=== PATIENT | female | born 1950 | race Caucasian/White ===

== ENCOUNTER → 2018-01-10 10:07 | Outpatient (CLI) | payer MEDICARE, SELFPAY ==
--- NOTE | 2018-01-10 10:11 | BI_ITS ---
MAMMOGRAPHY - BILATERAL SCREENING REASON FOR EXAM: Female, 67 years old. Routine annual screening examination. PERTINENT HISTORY: Sister with breast cancer. TECHNIQUE: Digital bilateral breast cristobal (3D mammographic acquisition) in the CC and MLO projections. 2-D mediolateral oblique (MLO) and craniocaudad (CC) views of both breasts were obtained. CAD: Full Field Digital Mammography with Computer Added Detection was performed. COMPARISON: Comparison is made with prior study June 25, 2016 and May 21, 2015. FINDINGS: Breast Composition: The breasts are heterogeneously dense, which may obscure small masses. There are no dominant masses or suspicious calcifications. No other significant abnormalities are identified. There has been no significant change since the prior study. BI/SCREENING MAMM (CAD), BILAT IMPRESSION: Stable bilateral screening mammogram. Yearly follow-up mammogram recommended. (A) ASSESSMENT CATEGORY: BIRADS Category 1: Negative. A letter regarding these results will be sent to the patient by the facility within 30 days. Approximately 10% of breast cancers are not detected by mammography. A normal mammogram should not delay biopsy of a clinically suspicious abnormality. [id number] Electronically Signed: Feliz Rangel MD at 12:44 EDT Tel [phone], Service support ,
== END ==
PROVIDERS: Family Provider Family Medicine; PCP Family Medicine; Visit Provider Obstetrics & Gynecology
DX: Z12.31 Encounter for screening mammogram for malignant neoplasm of breast (principal)
CPT/HCPCS: 77063; 77067

== ENCOUNTER → 2018-05-27 11:13 | Outpatient (CLI) | payer MEDICARE, SELFPAY ==
--- NOTE | 2018-05-27 | EMB_PTH ---
PATIENT: FLO RETANA LOC: [facility] U#:[id number] AGE/SX: 75/F ROOM: RE05/27/[address]: Dr. Porsche Carter MD : 1950 BED: DIS: SPEC #: [id number] RECD: 05/27/18 11:33 STATUS: FLAKITO IGNACIO #: [id number] ABAD: 05/27/18 00:[address]: Porsche Carter DEPT: SURGICAL PATHOLOGY RECD BY: Shahbaz Estrada ENTERED: 05/27/18 11:33 SP TYPE: ENDOM BX/C NIK DR: Dr. 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 See comment. CHARANJIT:sharmaine 05/30/18 COMMENT Immunohistochemistry ([id number]) supports the above diagnosis. Rebiopsy is recommended for definite classification of the lesion. Differential diagnosis includes mixed m?llerian tumor, adenosarcoma, sarcoma with squamous differentiation. Clinical correlation and appropriate follow up are necessary. This case is discussed with Dr. Ybarra on 05/30/18. Case has been reviewed in consultation with Dr. De La Fuente who concurs with the above diagnosis. IDC:AM MICROSCOPIC DESCRIPTION Slides are reviewed. GROSS DESCRIPTION Received in fixative is one container labeled with the patient's name and designated EM biopsy. The specimen consists of multiple fragments of hemorrhagic mucoid tissue that in aggregate measure 2.5 x 2 x 0.1 cm. The specimen is totally submitted in one cassette. / CHARANJIT:sharmaine 05/27/18 TC:0 CPT: 76937
--- NOTE | 2018-05-27 | IMM_PTH ---
PATIENT: FLO RETANA LOC: [facility] U#:[id number] AGE/SX: 75/F ROOM: RE05/27/[address]: Dr. Porsche Carter MD : 1950 BED: DIS: SPEC #: [id number] RECD: 05/30/18 13:21 STATUS: FLAKITO REQ #: [id number] ABAD: 05/27/18 00:[address]: Porsche Carter DEPT: IMMUNOHISTOCHEMISTRY RECD BY: Aishwarya Ward ENTERED: 05/30/18 13:23 SP TYPE: IMMUNO OTHR DR: Dr. Juventino Tan DO Tissues: Endometrium, NOS Procedures: SMA (add) MYOSIN (add) CEA (add) CK20 (add) CK5-6 (add) CK7 (add) CK8 (add) DESMIN (add) KI-67 (add) P53 (add) WY (add) Vimentin (add) Pankeratin (add) P40 (add) ER (initial) PHYSICIAN [facility] INSTITUTION [address] [address] SPECIMEN INFORMATION: Tissue Source: Endometrial biopsy Clinical Info: Uterine hypertrophy Specimen Number: [id number] CPT code: 85740, 06822 x13 METHODOLOGY: Deparaffinized sections of prefer/formalin-fixed tissue or PAP/DQ stained slides are incubated with monoclonal/polyclonal antibodies/oligonucleotide probes. Localization is made via biotin free immunoperoxidase method. Appropriate controls are performed and reacted as expected. Results on target cell population are indicated in the following table: RESULTS: ANTIBODY / CLONE RESULT ER (6F11) positive, weak WY (1E2) positive, weak Vimentin (V9) positive AE1-3 (AE1/AE3/PCK26) positive, focal CK7 (OV-TL12/30) positive, focal CK8 (05keojK16) positive, focal CK20 (KS20.8) negative CK5-6 (D5 & 1684) positive, focal CEA (11-7/TF-3HB-1) positive, focal P40 (BC28) positive, focal Desmin (CE-R-11) positive, focal Myosin (simms1) negative P53 (DO-7) positive, moderate Ki-67 (30-9) positive, high These tests were developed and their performance characteristics determined by [facility]. They may not have been cleared or approved by the [place]. Food and Drug Administration. The FDA has determined that such clearance or approval is not necessary. INTERPRETATION: Endometrial biopsy: Poorly differentiated malignant neoplasm. SJ:sharmaine 05/31/18 Comment: Differential diagnosis includes mixed m?llerian tumor, adenosarcoma or sarcoma with focal squamous differentiation. Clinical correlation and appropriate follow up are necessary.. Case has been reviewed in consultation with Dr. De La Fuente who concurs with the above diagnosis. IDC:HEMA
--- OUTSIDE RECORDS SUMMARY | 2018-07-22 09:33 | XMS RPT_ITS ---
:1950 Author Organization [facility] Care Team Providers Name Role Phone Lasha Huber Attending Unavailable PROVIDER, UNKNOWN Referring Unavailable Dominick, Juventino Primary Care Unavailable Lasha Huber Attending Unavailable PROVIDER, UNKNOWN Referring Unavailable Dominick, Juventino Primary Care Unavailable Lasha Huber Attending Unavailable PROVIDER, UNKNOWN Referring Unavailable Dominick, Juventino Primary Care Unavailable Porsche Carter Attending Unavailable Porsche Carter Referring Unavailable Dominick, Juventino Primary Care Unavailable Porsche Carter Attending Unavailable Dominick, Juventino Primary Care Unavailable PROBLEMS PROBLEMS DATE TYPE CONDITION / CODE ATTENDING STATUS SOURCE 06/03/2018 Admitting Malignant [facility] of Lasha System endometrium / Repository C54.1(ICD-10) PROCEDURES PROCEDURES No Procedure Records FoundRESULTS RESULTS HEMOGRAM Collected: 06/09/2018 Status: F Source: [place] 5:23 AM SYSTEM REPOSITORY TYPE CODE TESTS RESULT OUT OF RANGE REFERENCE UNITS LAB IWBC 3.6-10.7 10*3/uL WBC Normal 8.7 LAB RBC 3.80-5.20 10*6/uL Low RBC 3.69 LAB HGB 11.7-16.0 g/dL Low Hemoglobin 11.3 LAB HCT 35.0-47.0 % Low Hematocrit 33.0 LAB MCV 79.0-98.0 fL MCV Normal 89.5 LAB MCH 26.0-34.0 pg MCH Normal 30.6 LAB MCHC 32.0-36.0 % MCHC Normal 34.2 LAB RDW 11.5-14.5 % RDW Normal 13.5 LAB PLT 140-440 10*3/uL Platelet Normal 178 LAB MPV 7.4-10.4 fL MPV Normal 9.2 Performed By: #### HEMOG #### [facility] [address] [place] [id number] OP NOTE Observed: 06/08/2018 Status: F Source: [place] 9:19 AM SYSTEM REPOSITORY PATIENT: YARI RETANA ADMISSION DATE: 06/08/2018 SURGERY DATE: 06/08/2018 DATE OF : 1950 AGE: 68 ADMITTING PHYSICIAN: Lasha Huber MD ATTENDING PHYSICIAN: Lasha Huber MD DICTATING PHYSICIAN: Lasha Huber MD OPERATIVE RECORD Procedure: LULY-BSO WITH PELVIC AND PERIAORTIC LYMPH SAMPLING. Preoperative Diagnoses: 1. Endometrial cancer. 2. Uterine fibroids. Postoperative Diagnoses: 1. Endometrial cancer. 2. Uterine fibroids. Anesthesia: General. Damascener: 1. Dr. Gonzalez. 2. Dr. Leach. Description of Findings: The patient had clinical stage I disease; however, there was a large necrotic polypoid mass completely filling the endometrial cavity. No suspicious adenopathy was found. The appendix was normal. The omentum and the peritoneal surfaces were all normal. Description of Procedure: The patient was identified and brought to the operating room and after administration of general anesthesia, underwent abdominoperineal and vaginal prep. Exam under anesthesia revealed a 14-16-week size uterus that was mobile. No vaginal or cervical involvement was noted. She underwent abdominoperineal and vaginal prep. Compression stockings on and running. Time- out was performed. Antibiotics were given. A Muller catheter was placed in the bladder. She was draped in a supine position and using a knife, a Pfannenstiel incision was made, sharply dividing down through the skin and subcutaneous tissue of the fascia which was opened using Bovie cautery. The fascia was dissected off the underlying rectus abdominus muscles in the superior and inferior direction, the peritoneal cavity was opened using Metzenbaum scissors and the Walt wound retractor was placed. Intra-abdominal exploration revealed no evidence of extrauterine disease. The uterus was brought up into the field, the bowel was packed out of the pelvis using wet lap sponges. The right and left round ligaments were coagulated and divided, the anterior and posterior leaves of the broad ligament . The ureter was identified. The ovarian vessels were skeletonized above the ureter, clamped, cut and tied with right angle clamps and 0 Vicryl suture x2. The bladder was dissected inferiorly allowing the uterine vessels to be clamped, cut, and tied using curved Zeppelins and 0 Vicryl transfixion sutures. The cardinal ligaments were serially clamped, cut, and tied using straight zeppelins, then replaced with 0 Vicryl transfixion sutures. The vaginal cuff was then crossclamped with curved Zeppelins, sharply divided. The uterus, cervix, tubes, and ovaries handed off the field. The Zeppelins were replaced with 0 Vicryl transfixion sutures and the cuff was closed with 0 Vicryl [id number]. The pelvis was irrigated. Hemostasis noted. The pararectal and paravesical spaces were opened and the retroperitoneal spaces overlying the periaortic nodes were opened. The periaortic lymph node dissection was then performed on the right side using hemoclips as well as small burst of Bovie cautery. The right pelvic nodes were then dissected, these included lymph nodes medial to the genitofemoral nerve, proximal to the circumflex iliac vein and lymph nodes in the obturator space, anterior to the obturator nerve. Similar dissection was then repeated over on the left side to remove the left periaortic followed by left pelvic nodes. Hemostasis was noted. The pelvis was irrigated. Hemostasis noted. All sponges, needles, and instruments were reported as correct to the surgeon x2 and using the colon closure protocol, the surgeons were re- gloved and gowned using new instruments, the fascia was closed using a running 0 PDS followed by subcuticular 4-0 Vicryl on the skin. EBL was less than 100 cc. cc: Dr. Porsche Delvalle Job ID: [id number] Lasha Huber MD DOD:06/08/2018 09:19 A Colin DOT:06/08/2018 12:02 P Job Number: [id number] Document Number: [id number] cc: Lasha Huber MD inDin[facility] [facility] [address] Observed: 06/08/2018 Status: F Source: Virtual[facility] SURGICAL PATHOLOGY 8:13 AM SYSTEM REPOSITORY [id number] [facility] DE[facility] OF [facility] PATHOLOGY AND LABORATORY MEDICINE [address] [place] [address] FINAL SURGICAL PATHOLOGY REPORT NAME: YARI RETANA : 1950 68 Y F BILLING NO.: [id number] LOCATION: [address] [place] [address] PROCEDURE 06/08/2018 DATE: SURGEON: LASHA HUBER MD RECEIVED 06/08/2018 DATE: ATTENDING: LASHA HUBER MD REPORT DATE: 06/09/2018 COPIES TO: DIAGNOSIS: A. UTERUS, CERVIX, TUBES AND OVARIES, SIMPLE HYSTERECTOMY WITH BILATERAL SALPINGO-OOPHORECTOMY: CARCINOSARCOMA (SEE SYNOPTIC REPORT BELOW) B. LYMPH NODES, LEFT PELVIC, EXCISION - FOUR NEGATIVE LYMPH NODES (0/4) C. LYMPH NODES, LEFT PERIAORTIC, EXCISION - FOUR NEGATIVE LYMPH NODES (0/4) D. LYMPH NODES, RIGHT PARA-AORTIC, EXCISION - THREE NEGATIVE LYMPH NODES (0/3) E. LYMPH NODES, RIGHT PELVIC, EXCISION - FOUR NEGATIVE LYMPH NODES (0/4) Synoptic Report (Parts A-E): SPECIMEN: Uterus with bilateral tubes and ovaries and lymph nodes PROCEDURE: Simple hysterectomy with bilateral salpingo-oophorectomy and lymph node sampling SPECIMEN INTEGRITY: Intact uterus HISTOLOGIC TYPE: Carcinosarcoma HISTOLOGIC GRADE: Not applicable MYOMETRIAL INVASION: Present THICKNESS OF MYOMETRIUM: 4.6 cm DEPTH OF INVASION: 3.9 cm (>50% of myometrium) INVOLVEMENT OF CERVIX: Not identified INVOLVEMENT OF OTHER ORGANS: LEFT OVARY: Not involved LEFT FALLOPIAN TUBE: Not involved RIGHT OVARY: Not involved RIGHT FALLOPIAN TUBE: Not involved LYMPHATIC/VASCULAR INVASION: Present STAGING: PRIMARY TUMOR: pT1b [IB]: Tumor invades greater than or equal to one-half of the myometrium REGIONAL LYMPH NODES: pN0: No regional lymph node metastasis Pelvic lymph node sampling: Performed Number of nodes examined: 8 Number of nodes involved: 0 Para-aortic lymph nodes: Performed Number of nodes examined: 7 Number of nodes involved: 0 AJCC 2017 STAGING: pT1b, pN0 MMR TESTING: Forthcoming ELECTROENCEPHALOGRAPHIC TECHNOLOGIST TUMOR BLOCK: A5 ADDITIONAL PATHOLOGIC FINDINGS: Left ovarian fibroma JAW/JAW <Sign Out Dr. Licona> SUNI PEDRAZA M.D. CLINICAL INFORMATION: Endometrial cancer, Grade 3, fibroids SPECIMEN: (A) UTERUS (RFN), WITH/WITHOUT TUBES AND OVARIES (B) LYMPH NODE(S) SPECIMEN (C) LYMPH NODE(S) SPECIMEN (D) LYMPH NODE(S) SPECIMEN (E) LYMPH NODE(S) SPECIMEN GROSS DESCRIPTION: A. Uterus, cervix, tubes and ovaries Received in formalin is one previously bivalved uterus with attached cervix and bilateral adnexa. The uterus and cervix measure in open diameter 19.5 x 11.5 x 6.5 cm and weighs 602 grams. The external surfaces are pink to capellan in color, with multiple small subserosal nodules ranging in size from 0.5 to 1.5 cm in diameter. The cervix of the specimen is pink to capellan in color and previously bivalved, and measures 3.5 cm in diameter. Full bisecting of the uterus reveals a large, fungating, partially necrotic mass filling the endometrial cavity, which measures 13 x 8.5 x 7.2 cm. This mass appears to invade into the outer half of the myometrium and possibly to the serosal surface of the uterus. Cervical involvement is not identified. The endometrium measures 3.9 cm in thickness and the myometrium measures 0.7 cm in thickness. The left ovary is yellow-capellan in color with a cerebriform appearance and measures 6.2 x 3.5 x 2.4 cm and weighs 24 grams. Sectioning reveals a smooth, yellow-capellan, homogeneous cut surface. The left fallopian tube is purple to capellan in color, smooth with attached fimbriae and measures 4.5 cm in length by 0.8 cm in diameter. Sectioning reveals an unremarkable pinpoint lumen. The right ovary is yellow to capellan in color with a cerebriform appearance and measures 4.1 x 2 x 1.9 cm and weighs 8 grams. Sectioning reveals a capellan-brown ovarian cut surface with areas of light capellan, solid, granular cut surfaces. The right fallopian tube is purple to capellan in color, smooth with attached fimbriae and measures 4.1 cm in length by 0.9 cm in diameter. Sectioning reveals an unremarkable pinpoint lumen. Pre K Lead Teacher sections are submitted. Cassette Summary: A1 - posterior cervix; A2 - anterior cervix; A3 through A5 - posterior full-thickness endomyometrium with mass; A6 through A8 - additional posterior full-thickness endomyometrium with mass; A9 anterior lower uterine segment; A10 - posterior lower uterine segment; A11 through A13 - anterior full-thickness endomyometrium with mass; A14 through A16 - additional anterior full-thickness endomyometrium with mass; A17 and A18 - left ovary; A19 - left fallopian tube; A20 and A21 - right ovary; A22 - right fallopian tube. (bits ss, 22) B. Left pelvic nodes Received in formalin is one portion of yellow-capellan fibrofatty tissue measuring 4.5 x 2 x 0.9 cm. Sectioning reveals four possible lymph nodes. All possible lymphoid tissue is submitted. Cassette Summary: B1 and B2 - one lymph node bisected each; B3 and B4 - one lymph node serially sectioned; B5 - one possible lymph node. (bits ss, 5) C. Left para-aortic nodes Received in formalin is one portion of fibrofatty tissue measuring 3.5 x 3 x 0.8 cm. Sectioning reveals three possible lymph nodes. The specimen is entirely submitted. Cassette Summary: C1 - one possible lymph node; C2 - one lymph node bisected; C3 - one possible lymph node, C4 - remainder of specimen. (bits ns, 4) D. Right para-aortic nodes Received in formalin is one portion of yellow-capellan fibrofatty tissue measuring 3 x 2 x 0.8 cm. Sectioning reveals two possible lymph nodes. Each lymph node is bisected and submitted in cassettes D1 and D2, with the remainder of the specimen submitted in cassette D3. (bits ns, 3) E. Right pelvic nodes Received in formalin are multiple fragments of yellow-capellan fibrofatty tissue measuring in aggregate 4 x 3 x 1 cm. Sectioning reveals multiple possible lymph nodes. All possible lymphoid tissue has been submitted. Cassette Summary: E1 through E4 - one possible lymph node per cassette; E5 and E6 - one lymph node bisected. (bits ss, 6) MRL/0RW Disclaimer: The following statement applies to all immunohistochemistry, in situ hybridization, molecular studies, and immunofluorescence testing. The use of one or more reagents in the above tests is regulated as an analyte specific reagent (ASR). These tests were developed and their performance characteristics determined by the clinical laboratories of [facility]. They have not been cleared by the US Food and Drug Administration (FDA). The FDA has determined that such clearance or approval is not necessary. All the above immunostains were performed on paraffin embedded tissue. Appropriate positive and negative controls (where applicable) were run in parallel with the patient's specimen; these controls showed expected staining pattern, with acceptable intensity of staining. Immunohistochemical assays have not been validated on decalcified tissues. Results should be interpreted with caution given the raised possibility of false negativity on decalcified specimens. Professional Performing Location: [address] [address]. DEPARTMENT OF PATHOLOGY AND LABORATORY MEDICINE [place], [place] [address] Observed: 06/08/2018 Status: F Source: bitFlyer GEL 6:34 AM SYSTEM REPOSITORY ABO Group: A Rh, Gel: POS Antibody Screen Gel: NEG Performed By: #### TSGL #### [place] [address] [place] [address] DISCHARGE SUMMARY Observed: 06/08/2018 Status: F Source: [place] 6:32 AM SYSTEM REPOSITORY Investment Officer Onc Discharge Summary Patient Name: Yari Retana Patient : 1950 Primary Care Physician: Juventino Tan DO Admit Date: 06/08/2018 Attending Provider: Lasha Huber MD Principal Diagnosis: Post operative care Other Diagnosis: S/P LULY-BSO [Z90.710, Z90.722, Z90.79] Patient Active Problem List Diagnosis ? S/P LULY-BSO ? Endometrial cancer (HCC) Surgical Operations & Procedures: Total Abdominal Hysterectomy, Bilateral Salpingo Oophorectomy, Pelvic and Periaortic Lymph Node Dissection 06/08/18 for Type 2 Endometrial Cancer vs. Uterine Sarcoma Consultations: Acute Pain (TAP Catheters) Pertinent Findings & Procedures: Yari Retana is a 68 y.o. female admitted for post operative care. She underwent the above procedure on 06/08/18. She met all appropriate postoperative milestones. Hospital course normal, discharged home 06/10/2018. Follow up in 2 weeks. Discharge instructions reviewed and questions answered. Course of patient: As noted above Discharge to: Home Wound Care: keep wound clean and dry Recommendations on Discharge: Medications: Yari Retana Home Medication Instructions BRITNEY:[id number] Printed on:06/10/18 0641 Medication Information Calcium Carbonate-Vitamin D (CALCIUM 600+D PO) Take by mouth enoxaparin (LOVENOX) 40 MG/0.4ML injection Inject 0.4 mLs into the skin daily for 28 days hydrochlorothiazide (HYDRODIURIL) 25 MG tablet Take 25 mg by mouth daily ibuprofen (ADVIL;MOTRIN) 600 MG tablet Take 1 tablet by mouth every 6 hours as needed for Pain Multiple Vitamins-Minerals (MULTIVITAMIN ADULT PO) Take by mouth oxyCODONE (ROXICODONE) 5 MG immediate release tablet Take 1 tablet by mouth every 6 hours as needed for Pain for up to 20 doses.. pantoprazole sodium (PROTONIX) 40 MG PACK packet Take 40 mg by mouth every morning (before breakfast) sertraline (ZOLOFT) 100 MG tablet Take 100 mg by mouth daily simvastatin (ZOCOR) 20 MG tablet Take 20 mg by mouth nightly Activity: activity as tolerated, no sex for 6 weeks and no heavy lifting for 4-6 weeks Diet: regular diet Follow up: 06/22/18 Condition on discharge: good and stable Discharge Date: 06/10/2018 Comments: Home care, Follow-up care, restrictions reviewed. Berenice Leach MD 06/10/2018, 6:41 AM Observed: 06/08/2018 Status: F Source: [place] MEDICAL CYTOLOGY 12:00 AM [facility] [id number] DEPARTMENT OF PATHOLOGY AND [facility] LABORATORY MEDICINE [address] [place] [address] FINAL MEDICAL CYTOLOGY REPORT NAME: YARI RETANA : 1950 68 Y F BILLING NO.: [id number] LOCATION: [address] [place] [address] PROCEDURE 06/08/2018 DATE: PHYSICIAN: LASHA HUBER MD RECEIVED DATE: 06/08/2018 ATTENDING: LASHA HUBER MD REPORT DATE: 06/09/2018 COPIES TO: CLINICAL DATA: DIAGNOSIS NO MALIGNANT CELLS IDENTIFIED. SPECIMEN: PERITONEAL WASHING PROCEDURE(S): WASHINGS GROSS DESCRIPTION: 40 ml, red fluid, w/CytoLyt Materials Prepared & Examined: Cell Blocks . . . . . . . . . . . . 1 Monolayers . . . . . . . . . . . . 1 [facility] <Sign Out Dr. Licona> Screened by LASHANDA JOHNS M.D. The following statement applies to all immunohistochemistry, in situ hybridization, molecular studies, and immunofluorescence testing. The use of one or more reagents in the above tests is regulated as an analyte specific reagent (ASR). These tests were developed and their performance characteristics determined by the clinical laboratories of [facility]. They have not been cleared by the US Food and Drug Administration (FDA). The FDA has determined that such clearance or approval is not necessary. All the above immunostains were performed on paraffin embedded tissue. Appropriate positive and negative controls (where applicable) were run in parallel with the patient's specimen; these controls showed expected staining pattern, with acceptable intensity of staining. Immunohistochemical assays have not been validated on decalcified tissues. Results should be interpreted with caution given the raised possibility of false negativity on decalcified specimens. Case reviewed at [facility] [address] [place] [address]. DEPARTMENT OF PATHOLOGY AND LABORATORY MEDICINE [place], [place] [address] CR CHEST PA/LAT Observed: 06/03/2018 Status: F Source: [facility] SMR SITE 1:42 PM SYSTEM REPOSITORY Patient Name: YARI RETANA Diagnostic Radiology Exam Date/Time 06/03/2018 11:11:04 EST Exam CR Chest PA/LAT Ordering Physician LASHA HUBER Accession Number [id number] CPT4 Codes 54331 () Reason For Exam Malignant neoplasm of endometrium Report CLINICAL INDICATION: Shortness of breath. Endometrial carcinoma Frontal and lateral plain films of the chest were obtained. COMPARISON: None FINDINGS: The cardiac silhouette is within normal limits. No focal consolidation is seen within the lungs. No pleural effusion or pneumothorax is identified. Hyperaeration noted with flattening of the hemidiaphragms IMPRESSION: No acute cardiopulmonary disease. Report Dictated on Final Dictated: 06/03/2018 1:42 pm Dictating Physician: MD GREENFIELD LAURA Signed Date and Time: 06/03/2018 1:42 pm Signed by: MD GREENFIELD LAURA Transcribed Date and Time: 06/03/2018 1:42 HEMOGRAM Collected: 06/03/2018 Status: F Source: [facility] SMR SITE 10:59 AM SYSTEM REPOSITORY TYPE CODE TESTS RESULT OUT OF RANGE REFERENCE UNITS LAB IWBC 3.6-10.7 10*3/uL WBC Normal 6.5 LAB RBC 3.80-5.20 10*6/uL RBC Normal 4.39 LAB HGB 11.7-16.0 g/dL Normal Hemoglobin 13.2 LAB HCT 35.0-47.0 % Normal Hematocrit 39.0 LAB MCV 79.0-98.0 fL MCV Normal 88.8 LAB MCH 26.0-34.0 pg MCH Normal 30.0 LAB MCHC 32.0-36.0 % MCHC Normal 33.8 LAB RDW 11.5-14.5 % RDW Normal 13.1 LAB PLT 140-440 10*3/uL Platelet Normal 212 LAB MPV 7.4-10.4 fL MPV Normal 9.9 Performed By: #### HEMOG CMP3 #### [employer] [facility] [address] [place] [phone] COMP METABOLIC PANEL Collected: 06/03/2018 Status: F Source: [place] 10:59 AM SYSTEM REPOSITORY TYPE CODE TESTS RESULT OUT OF RANGE REFERENCE UNITS LAB NA3 137-145 mmol/L Sodium Normal 141 LAB K3 3.5-5.1 mmol/L Normal Potassium 4.8 LAB CL3 98-107 mmol/L Chloride Normal 100 LAB CO23 22-30 mmol/L Carbon Normal Dioxide 29 LAB ANIN3 NA Anion Gap 12 LAB GLUC3 70-100 mg/dL Glucose Normal 79 LAB BUN3 7-20 mg/dL High Urea Nitrogen 25 LAB CRET3 0.52-1.25 mg/dL Normal Creatinine 0.82 LAB GF3BR >60 mL/min eGFR > 60.0 LAB GF3WR >60 mL/min eGFR OTHER > 60.0 Result Comment: Source- MDRD equation with creatinine calibration to IDMS(NKDEP) eGFR not recommended for drug dose adjustment LAB CA3 8.4-10.4 mg/dL Calcium Normal 10.3 LAB ALB3 3.5-5.0 g/dL Albumin, Serum Normal 4.9 LAB TP3 6.3-8.2 g/dL Total Protein Normal 7.8 LAB BILT3 0.2-1.3 mg/dL Normal Bilirubin,Total 0.7 LAB ALKP3 38-126 U/L Alkaline Normal Phosphatase 89 LAB ALT3 13-69 U/L ALT (SGPT) Normal 37 LAB AST3 15-46 U/L AST (SGOT) Normal 33 Performed By: #### HEMOG, CMP3 #### [address] [address] IMMUNOHISTOCHEMISTRY Observed: 05/27/2018 Status: F Source: [place] 12:00 [facility] REPOSITORY Patient: YARI RETANA : 1950 (68/F) Acct Num: [id number] Phys: Porsche Carter MD Unit Num: [id number] Loc: LABSPEC Specimen: [id number] Received: 05/30/18 - 1320 Spec Type: IMMUNO TISSUES 1 TISSUES: Endometrium, NOS SPECIMEN INFORMATION: Tissue Source: Endometrial biopsy Clinical Info: Uterine hypertrophy Specimen Number: [id number] CPT code: 88713, 92157 x13 METHODOLOGY: Deparaffinized sections of prefer/formalin-fixed tissue or PAP/DQ stained slides are incubated with monoclonal/polyclonal antibodies/oligonucleotide probes. Localization is made via biotin free immunoperoxidase method. Appropriate controls are performed and reacted as expected. Results on target cell population are indicated in the following table: RESULTS: ANTIBODY / CLONE RESULT ER (6F11) positive, weak UT (1E2) positive, weak Vimentin (V9) positive AE1-3 (AE1/AE3/PCK26) positive, focal CK7 (OV-TL12/30) positive, focal CK8 (85hcwiZ26) positive, focal CK20 (KS20.8) negative CK5-6 (D5 AND 1684) positive, focal CEA (11-7/TF-3HB-1) positive, focal P40 (BC28) positive, focal Desmin (CE-R-11) positive, focal Myosin (simms1) negative P53 (DO-7) positive, moderate Ki-67 (30-9) positive, high These tests were developed and their performance characteristics determined by [facility]. They may not have been cleared or approved by the U.S. Food and Drug Administration. The FDA has determined that such clearance or approval is not necessary. INTERPRETATION: Endometrial biopsy: Poorly differentiated malignant neoplasm. SJ:sharmaine 05/31/18 Comment: Differential diagnosis includes mixed m llerian tumor, adenosarcoma or sarcoma with focal squamous differentiation. Clinical correlation and appropriate follow up are necessary.. Case has been reviewed in consultation with Dr. De La Fuente who concurs with the above diagnosis. IDC:AM PHYSICIAN AND INSTITUTION [address] [address] Signed Bartolo Jones 05/31/18 <signature on file> Performed By: #### PIMM #### [facility] [address] [place] [address]. [place], [address] ENDOMETRIAL BX/CURETTINGS Observed: 05/27/2018 Status: F Source: [place] 12:00 AM [facility] [place] Patient: YARI RETANA : 1950 (68/F) Acct Num: [id number] Phys: Raul STOREY,Porsche Unit Num: [id number] Loc: LABSPEC Specimen: [id number] Received: 05/27/18 - 1133 Spec Type: ENDOM BX/C TISSUES 1 TISSUES: Endometrium, NOS COMMENT Immunohistochemistry ([id number]) supports the above diagnosis. Rebiopsy is recommended for definite classification of the lesion. Differential diagnosis includes mixed m llerian tumor, adenosarcoma, sarcoma with squamous differentiation. Clinical correlation and appropriate follow up are necessary. This case is discussed with Dr. Ybarra on 05/30/18. Case has been reviewed in consultation with Dr. De La Fuente who concurs with the above diagnosis. IDC:AM GROSS DESCRIPTION Received in fixative is one container labeled with the patient's name and designated EM biopsy. The specimen consists of multiple fragments of hemorrhagic mucoid tissue that in aggregate measure 2.5 x 2 x 0.1 cm. The specimen is totally submitted in one cassette. / CHARANJIT:sharmaine 05/27/18 TC:0 CPT: 62609 HEADER OPERATION: Endometrial biopsy PRE-OP DIAGNOSIS: Uterine hypertrophy TISSUE SUBMITTED: Endometrial biopsy MICROSCOPIC DESCRIPTION Slides are reviewed. MICROSCOPIC DIAGNOSIS Endometrial biopsy: Poorly differentiated malignant neoplasm with extensive necrosis. See comment. CHARANJIT:sharmaine 05/30/18 Signed Bartolo Jones 05/31/18 <signature on file> Performed By: #### PEMB #### [facility] [address] [place], [address] SCREENING MAMM (CAD), Observed: 01/10/2018 Status: F Source: [place] 10:11 AM [facility] REPOSITORY [facility] Imaging Services [address] [place] [address] SCREENING MAMM (CAD), BILAT MR#: [id number] Acct: [id number] Name: YARI RETANA Rep #: [id number] : 1950 F 67 From: Feliz Rangel MD PCP: Juventino Tan DO Status: REG CLI Study: SCREENING MAMM (CAD), BILAT Date of Exam: 01/10/18 Exam# [id number] Ordering Dr: Porsche Carter MD MAMMOGRAPHY - BILATERAL SCREENING REASON FOR EXAM: Female, 67 years old. Routine annual screening examination. PERTINENT HISTORY: Sister with breast cancer. TECHNIQUE: Digital bilateral breast cristobal (3D mammographic acquisition) in the CC and MLO projections. 2-D mediolateral oblique (MLO) and craniocaudad (CC) views of both breasts were obtained. CAD: Full Field Digital Mammography with Computer Added Detection was performed. COMPARISON: Comparison is made with prior study June 25, 2016 and May 21, 2015. FINDINGS: Breast Composition: The breasts are heterogeneously dense, which may obscure small masses. There are no dominant masses or suspicious calcifications. No other significant abnormalities are identified. There has been no significant change since the prior study. BI/SCREENING MAMM (CAD), BILAT IMPRESSION: Stable bilateral screening mammogram. Yearly follow-up mammogram recommended. (A) ASSESSMENT CATEGORY: BIRADS Category 1: Negative. A letter regarding these results will be sent to the patient by the facility within 30 days. Approximately 10% of breast cancers are not detected by mammography. A normal mammogram should not delay biopsy of a clinically suspicious abnormality. [id number] Electronically Signed: Feliz Rangel MD at 12:44 EDT Tel [phone], Service support , CC: DO Juventino Tan; Porsche Catrer MD Batter Out: Signed ALLERGIES ALLERGIES No Allergies Records FoundENCOUNTERS ENCOUNTERS ADMIT/DISCHARGE ACCOUNT NUMBER ADMITTING ENCOUNTER LOCATION SOURCE CLASS 06/08/2018 [id number] [facility]patient [address] [place] [address] Encounter 7ERoom: System [id number]: Repository [id number] 06/06/2018 [id number] Ambulatory [facility] Repository 06/03/2018 [id number] Ambulatory [facility] Repository 05/27/2018 [id number] [facility] ding:LABSPEC Repository 01/10/2018 [id number] [facility] ding:OPBI Repository PAYERS PAYERS ENCOUNTER GUARANTOR PAYER SUBSCRIBER SOURCE 06/08/2018 Yari AlmonteB: Primary Yari AlmonteB: [employer] Insurance:[employer] [id number] System Kofi Dill, y Number: Effective Repository [place] [address]Hak: Date: () 06/08/2018 Secondary Yari AlmonteB: [facility] IBei[employer]eng Insurance:MedicarePol [id number] System icy Number: Effective Repository Date: 06/06/2018 Yari AlmonteB: Primary Yari AlmonteB: [employer] Insurance:[employer] [id number] System Kofi Dill, y Number: Effective Repository [place] [address]Xmq: Date: () 06/03/2018 Yari AlmonteB: Primary Yari AlmonteB: [employer] Insurance:[employer] [id number] System Kofi Dill, y Number: Effective Repository [place] [address]Fpc: Date: () 05/27/2018 [facility] Primary YARI Kirby [facility] [place] PPOPol[place] [id number] [facility] [address]Iuq: [phone]) Number: Repository [phone] () [id number] Date:[id number] [address] [address]XG: 05/27/2018 Secondary NOT GIVENUNK [place] Insurance:SELF PAY [facility] Number: Effective Repository Date:2018-05-27 01/10/2018 [facility] Primary YARI Kirby Insurance:[facility]: [place] PPOPolicy [id number] Hospital [address]Zir: [phone]) Number: Repository [phone] () [id number] Date:[id number] [address] [address]KJ: 01/10/2018 Secondary NOT GIVENUNK [place] Insurance:SELF PAY [facility] Number: Effective Repository Date:2017-12-21
== END ==
PROVIDERS: Family Provider Family Medicine; PCP Family Medicine; Referring Provider Obstetrics & Gynecology; Visit Provider Obstetrics & Gynecology
DX: N85.8 Other specified noninflammatory disorders of uterus (principal)
CPT/HCPCS: 88305; 88341; 88342

== ENCOUNTER → 2019-01-12 | Outpatient (CLI) | payer MEDICARE, SELFPAY ==
--- NOTE | 2019-01-12 08:30 | BI_ITS ---
MAMMOGRAPHY - BILATERAL SCREENING REASON FOR EXAM: Female, 68 years old. Routine annual screening examination. PERTINENT HISTORY: Sister with breast cancer. History of uterine cancer. TECHNIQUE: Digital bilateral breast dread (3D mammographic acquisition) in the CC and MLO projections. 2-D mediolateral oblique (MLO) and craniocaudad (CC) views of both breasts were obtained. CAD: Full Field Digital Mammography with Computer Added Detection was performed. COMPARISON: Comparison is made with prior study dated January 10, 2018 and May 26, 2016. FINDINGS: Breast Composition: The breasts are heterogeneously dense, which may obscure small masses. There are no dominant masses or suspicious calcifications. No other significant abnormalities are identified. There has been no significant change since the prior study. BI/SCREEN MAMM (CAD) W/DREAD BILAT IMPRESSION: Stable bilateral screening mammogram. Yearly follow-up mammogram recommended. (A) ASSESSMENT CATEGORY: BIRADS Category 1: Negative. A letter regarding these results will be sent to the patient by the facility within 30 days. Approximately 10% of breast cancers are not detected by mammography. A normal mammogram should not delay biopsy of a clinically suspicious abnormality. [id number] Electronically Signed: Feliz Rangel, at 10:33 EDT , Service support ,
== END | disposition home or self-care (01) ==
LOC: OPBI 08:28
PROVIDERS: Family Provider Family Medicine; PCP Family Medicine; Referring Provider Obstetrics & Gynecology; Visit Provider Obstetrics & Gynecology
DX: Z12.31 Encounter for screening mammogram for malignant neoplasm of breast (principal)
CPT/HCPCS: 77063; 77067

== ENCOUNTER → 2020-03-12 08:22 | Outpatient (CLI) | payer MEDICARE, SELFPAY ==
--- NOTE | 2020-03-12 08:23 | BI_ITS ---
MAMMOGRAPHY - BILATERAL SCREENING REASON FOR EXAM: Female, 69 years old. Routine annual screening examination. PERTINENT HISTORY: Sister with breast cancer. TECHNIQUE: Digital bilateral breast dread (3D mammographic acquisition) in the CC and MLO projections. 2-D mediolateral oblique (MLO) and craniocaudad (CC) views of both breasts were obtained. CAD: Full Field Digital Mammography with Computer Added Detection was performed. COMPARISON: Comparison is made with prior examination dated 01/12/2019 and 01/10/2018. FINDINGS: Breast Composition: The breasts are extremely dense, which lowers the sensitivity of mammography. There are no dominant masses or suspicious calcifications. No other significant abnormalities are identified. There has been no significant change since the prior study. BI/SCREEN MAMM (CAD) W/DREAD BILAT IMPRESSION: Stable bilateral screening mammogram. Yearly follow-up mammogram recommended. (A) ASSESSMENT CATEGORY: BIRADS Category 1: Negative. A letter regarding these results will be sent to the patient by the facility within 30 days. Approximately 10% of breast cancers are not detected by mammography. A normal mammogram should not delay biopsy of a clinically suspicious abnormality. [id number] Electronically Signed: Feliz Rangel, at 10:22 EDT , Service support ,
== END ==
PROVIDERS: PCP Family Medicine; Referring Provider Student in an Organized Health Care Education/Training Program; Visit Provider Student in an Organized Health Care Education/Training Program
DX: Z12.31 Encounter for screening mammogram for malignant neoplasm of breast (principal)
CPT/HCPCS: 77063; 77067

== ENCOUNTER → 2021-05-14 10:03 | Outpatient (CLI) | payer MEDICARE, SELFPAY ==
--- NOTE | 2021-05-14 10:05 | BI_ITS ---
MAMMOGRAPHY - BILATERAL SCREENING REASON FOR EXAM: Female, 71 years old. Routine annual screening examination. PERTINENT HISTORY: Sister with breast cancer. History of uterine cancer. TECHNIQUE: Digital bilateral breast dread (3D mammographic acquisition) in the CC and MLO projections. 2-D mediolateral oblique (MLO) and craniocaudad (CC) views of both breasts were obtained. CAD: Full Field Digital Mammography with Computer Added Detection was performed. COMPARISON: Comparison is made with prior study dated 03/12/2020 and 01/12/2019. FINDINGS: Breast Composition: The breasts are extremely dense, which lowers the sensitivity of mammography. There are no dominant masses or suspicious calcifications. No other significant abnormalities are identified. There has been no significant change since the prior study. BI/SCRN MAMM (CAD)W/DREAD BILAT IMPRESSION: Stable bilateral screening mammogram. Yearly follow-up mammogram recommended. (A) ASSESSMENT CATEGORY: BIRADS Category 1: Negative. A letter regarding these results will be sent to the patient by the facility within 30 days. Approximately 10% of breast cancers are not detected by mammography. A normal mammogram should not delay biopsy of a clinically suspicious abnormality. [id number] Electronically Signed: Feliz Rangel MD at 13:18 EST , Service support ,
--- NOTE | 2021-05-14 10:37 | BD_ITS ---
STUDY: DUAL ENERGY X-RAY ABSORPTIOMETRY / DXA REASON FOR EXAM: Female, 71 years old. [id number]. The patient is postmenopausal. TECHNIQUE: Bone Mineral Density (BMD) measurements of lumbar spine and bilateral hips were obtained. COMPARISON: Comparison is made with prior examination dated 02/05/2009. FINDINGS: Lumbar Spine (L1-L4): g/cm2 (0.870) / T-score (-1.0) / Z-score (1.0) Findings are suggestive of normal bone density with a low fracture risk. Left Femur Total: g/cm2 (0.773) / T-score (-1.4) / Z-score (0.2) Left Femoral Neck: g/cm2 (0.566) / T-score (-2.6) / Z-score (-0.7) Right Femur Total: g/cm2 (0.769) / T-score (-1.4) / Z-score (0.1) Right Femoral Neck: g/cm2 (0.592) / T-score (-2.3) / Z-score (-0.5) The T-Scores on the most recent prior examination were: Lumbar Spine (L1-L4): There has been worsening of bone density since the previous examination. Left Femur Total: which represents a worsening of 3.2%. Right Femur Total: which represents a worsening of 5.1%. BD/Dexa Bone Density Study IMPRESSION: The patient is considered osteoporotic as outlined below according to World Jermaine Organization (WHO) criteria with a high fracture risk. There has been worsening of bone density since the previous examination. Reference Information: The T-score is the number of standard deviations above or below the standard which is normal for young adults at their peak bone mineral density. The World Health Organization (WHO) interprets the T-scores as follows: Above -1 Normal bone density Between -1 and -2.5 Osteopenia Equal to / or below -2.5 Osteoporosis As a practical clinical guideline, osteopenia may be graded as follows: Mild -1 through -1.5 Moderate -1.6 through -2.0 Severe -2.1 through -2.4 The Z-score is the number of standard deviations above or below age-matched controls. A Z-score of less than -1.5 would be considered abnormal. References: 1. NIH Osteoporosis and Related Bone Diseases www osteo.org 2. International Society for Clinical Densitometry www iscd.org 3. National Osteoporosis Foundation www nof.org Electronically Signed: Feliz Rangel MD at 14:47 EST , Service support ,
== END ==
PROVIDERS: PCP Family Medicine; Referring Provider Student in an Organized Health Care Education/Training Program; Visit Provider Student in an Organized Health Care Education/Training Program
DX: Z12.31 Encounter for screening mammogram for malignant neoplasm of breast (principal); Z78.0 Asymptomatic menopausal state
CPT/HCPCS: 77063; 77067; 77080

== ENCOUNTER 2021-08-21 09:49 | Outpatient (CLI) | payer MEDICARE, SELFPAY ==
[2021-08-21 12:14] LABS: Anion Gap 5 (5-15); BUN 20 mg/dL (7-18); BUN/Creat Ratio 22.7 RATIO (10-20); Calcium,Total 9.4 mg/dL (8.5-10.1); Chloride 102 mmol/L (98-107); Creatinine, Serum 0.88 mg/dL (0.55-1.02); EST Glomerular Filtration Rate 67 mL/min (>60); Est Glom Filt Rate - Afr Amer 81 mL/min (>60); Glucose 93 mg/dL (74-106); Potassium 3.4 mmol/L (3.5-5.1); Sodium Level 139 mmol/L (136-145)
[2021-08-21 12:20] LABS: Vitamin D,25 Hydroxy 39.4 ng/mL
== END 2021-08-21 23:59 | disposition home or self-care (01) ==
LOC: WOBLAB 09:50
PROVIDERS: PCP Family Medicine; Visit Provider Student in an Organized Health Care Education/Training Program
DX: M81.0 Age-related osteoporosis without current pathological fracture (principal); M85.80 Other specified disorders of bone density and structure, unspecified site
CPT/HCPCS: 36415; 80048; 82306

== ENCOUNTER → 2022-09-29 | Outpatient (CLI) | payer MEDICARE, SELFPAY | END | disposition home or self-care (01) | LOC: LABSPEC 14:05 | PROVIDERS: PCP Family Medicine; Visit Provider Student in an Organized Health Care Education/Training Program | DX: N39.0 Urinary tract infection, site not specified (principal) | CPT/HCPCS: 87086 ==

== ENCOUNTER → 2022-10-16 | Outpatient (CLI) | payer MEDICARE, SELFPAY ==
--- NOTE | 2022-10-16 10:19 | BI_ITS ---
MAMMOGRAPHY - BILATERAL SCREENING REASON FOR EXAM: Female, 72 years old. Routine annual screening examination. PERTINENT HISTORY: Sister with breast cancer. TECHNIQUE: Digital bilateral breast dread (3D mammographic acquisition) in the CC and MLO projections. 2-D mediolateral oblique (MLO) and craniocaudad (CC) views of both breasts were obtained. CAD: Full Field Digital Mammography with Computer Added Detection was performed. COMPARISON: Comparison is made with prior study dated May 14, 2021 and March 12, 2020. FINDINGS: Breast Composition: The breasts are extremely dense, which lowers the sensitivity of mammography. There are no dominant masses or suspicious calcifications. No other significant abnormalities are identified. There has been no significant change since the prior study. BI/SCRN MAMM (CAD)W/DREAD BILAT IMPRESSION: Stable bilateral screening mammogram. Yearly follow-up mammogram recommended. (A) ASSESSMENT CATEGORY: BIRADS Category 1: Negative. A letter regarding these results will be sent to the patient by the facility within 30 days. Approximately 10% of breast cancers are not detected by mammography. A normal mammogram should not delay biopsy of a clinically suspicious abnormality. [id number] Electronically Signed: Feliz Rangel MD at 11:15 EDT ,
== END | disposition home or self-care (01) ==
LOC: OPBI 10:17
PROVIDERS: PCP Family Medicine; Referring Provider Student in an Organized Health Care Education/Training Program; Visit Provider Student in an Organized Health Care Education/Training Program
DX: Z12.31 Encounter for screening mammogram for malignant neoplasm of breast (principal); Z80.3 Family history of malignant neoplasm of breast
CPT/HCPCS: 77063; 77067

== ENCOUNTER → 2023-10-18 | Outpatient (CLI) | payer MEDICARE, SELFPAY ==
--- NOTE | 2023-10-18 11:03 | BI_ITS ---
MAMMOGRAPHY - BILATERAL SCREENING REASON FOR EXAM: Female, 73 years old. Routine annual screening examination. PERTINENT HISTORY: Sister with breast cancer. TECHNIQUE: Digital bilateral breast dread (3D mammographic acquisition) in the CC and MLO projections. 2-D mediolateral oblique (MLO) and craniocaudad (CC) views of both breasts were obtained. CAD: Full Field Digital Mammography with Computer Added Detection was performed. COMPARISON: Comparison is made with prior study dated October 16, 2022 and May 14, 2021. FINDINGS: Breast Composition: The breasts are extremely dense, which lowers the sensitivity of mammography. There are no dominant masses or suspicious calcifications. No other significant abnormalities are identified. There has been no significant change since the prior study. BI/SCRN MAMM (CAD)W/DREAD BILAT IMPRESSION: Stable bilateral screening mammogram. Yearly follow-up mammogram recommended. (A) ASSESSMENT CATEGORY: BIRADS Category 1: Negative. A letter regarding these results will be sent to the patient by the facility within 30 days. Approximately 10% of breast cancers are not detected by mammography. A normal mammogram should not delay biopsy of a clinically suspicious abnormality. [id number] Electronically Signed: Feliz Rangel MD at 11:41 EDT ,
== END | disposition home or self-care (01) ==
LOC: OPBI 10:51
PROVIDERS: PCP Family Medicine; Visit Provider Family Medicine
DX: Z12.31 Encounter for screening mammogram for malignant neoplasm of breast (principal); Z80.3 Family history of malignant neoplasm of breast
CPT/HCPCS: 77063; 77067

== ENCOUNTER → 2024-10-19 | Outpatient (CLI) | payer MEDICARE, SELFPAY ==
--- NOTE | 2024-10-19 10:27 | BI_ITS ---
EXAM: SCRN MAMM (CAD)W/DREAD BILAT DATE: 10/19/2024 CLINICAL HISTORY: F, Age 74 y/o , SCREENING Sister with breast BREAST CANCER RISK ASSESSMENT: Not assessed TECHNIQUE: Bilateral screening digital breast tomosynthesis with 2D and 3D images. Computer aided detection. COMPARISON: Prior exam(s) dated October 18, 2023. FINDINGS: TISSUE DENSITY: The breast tissue is extremely dense which lowers the sensitivity of mammography. Bilateral Breast Mammographic Findings: No significant masses, calcifications or other abnormalities are identified. No suspicious masses, areas of developing architectural distortion, or suspicious calcifications. There has been no significant interval change. BI/SCRN MAMM (CAD)W/DREAD BILAT IMPRESSION: OVERALL FINAL ASSESSMENT: BIRADS 1 NEGATIVE RECOMMENDATION: Routine annual follow-up in 1 Year A letter with findings and recommendations will be mailed to the patient. Reading Location: [place] [address]
== END | disposition home or self-care (01) ==
PROVIDERS: PCP Internal Medicine; Referring Provider Internal Medicine; Visit Provider Internal Medicine
DX: Z12.31 Encounter for screening mammogram for malignant neoplasm of breast (principal); Z80.3 Family history of malignant neoplasm of breast
CPT/HCPCS: 77063; 77067